=== PATIENT | male | born 1985 | race Caucasian/White ===

== ENCOUNTER → 2018-05-24 15:02 | Outpatient (CLI) | payer OTHER, SELFPAY ==
--- NOTE | 2018-05-24 15:10 | RAD_ITS ---
STUDY: X-RAY CHEST REASON FOR EXAM: Male, 32 years old. 2 day history of cough. TECHNIQUE: PA and lateral views of the chest. COMPARISON: None. FINDINGS: The lungs are clear and expanded. There is no demonstrated pleural abnormality. Normal size heart. Normal mediastinum and darren. Normal visualized pulmonary arteries. Normal visualized aortic arch and descending thoracic aorta. Normal visualized thoracic spine. Normal visualized ribs, clavicles, and shoulders. There is no demonstrated abnormality of the visualized soft tissue structures of the upper abdomen. RAD/Chest PA and Lateral IMPRESSION: Normal x-ray examination of the chest. Electronically Signed: Gianfranco Chow MD at 15:30 EST , Service support ,
== END ==
PROVIDERS: Family Provider Family Medicine; PCP Family Medicine; Referring Provider Family Medicine; Visit Provider Family Medicine
DX: J20.9 Acute bronchitis, unspecified (principal)
CPT/HCPCS: 71046

== ENCOUNTER → 2020-11-28 16:42 | Outpatient (CLI) | payer OTHER, SELFPAY ==
[2020-11-28 17:58] LABS: AST(SGOT) 35 U/L (15-37); Alanine Aminotransfer ALT/SGPT 82 U/L (16-61); Albumin, Serum 4.1 g/dL (3.2-5.0); Alkaline Phosphatase 99 U/L (45-117); Anion Gap 7 (5-15); BUN 11 mg/dL (7-18); BUN/Creat Ratio 10.3 RATIO (10-20); Calcium,Total 8.7 mg/dL (8.5-10.1); Chloride 102 mmol/L (98-107); Cholesterol 173 mg/dL (200); Creatinine, Serum 1.07 mg/dL (0.70-1.30); EST Glomerular Filtration Rate 85 mL/min (>60); Est Glom Filt Rate - Afr Amer 102 mL/min (>60); Glucose 87 mg/dL (74-106); High Density Lipoprotein 38 mg/dL; Potassium 3.6 mmol/L (3.5-5.1); Protein, Total 8.1 g/dL (6.4-8.2); Sodium Level 137 mmol/L (136-145); Triglycerides 229 mg/dL; Very Low Density Lipoprotein 46 mg/dL (5-40)
== END ==
LOC: MFPLAB 16:45
PROVIDERS: Visit Provider Family Medicine
DX: R03.0 Elevated blood-pressure reading, without diagnosis of hypertension (principal)
CPT/HCPCS: 36415; 80053; 80061

== ENCOUNTER 2022-11-13 19:25 | Emergency (ER) | payer SELFPAY ==
[2022-11-13 19:27] VITALS: BP 179/125; PULSE 110; RESP 18; TEMP 36.1; O2SAT 99; BMI 35.9
--- NOTE | 2022-11-13 19:33 | EKG12_ITS ---
Test Reason : SOB Blood Pressure : / mmHG Vent. Rate : 103 BPM Atrial Rate : 103 BPM P-R Int : 178 ms QRS Dur : 112 ms QT Int : 360 ms P-R-T Axes : 039 000 020 degrees QTc Int : 471 ms Sinus tachycardia Otherwise normal ECG Confirmed by BEBE MACIAS, LENI ([id number]), senior technical editor BHARAT AGEE ([id number]) on 11/15/2022 12:35:10 PM Referred By: TYRON Confirmed By:LENI SPENCE MD
--- NOTE | 2022-11-13 19:37 | EDS_ITS ---
HPI History of Present Illness Chief Complaint: Shortness of Breath Informant: patient Onset/Context/Timing Onset: Weeks Context: gradual Timing: Intermittent Quality: Positive for Dyspnea on exertion and Wheezing Current Severity: Mild Maximum Severity: Mild Worsened by: Exertion and Coughing Relieved by: Rest Associated Symptoms cough Chest Pain: Positive for Intermittent and Sharp Narrative Narrative: 36-year-old male noticing a past medical history. States he has had issues breathing for last several weeks. He said he uses a mask at work and has noticed some tears in the mass recently and thinks he may have inhaled some industrial chemicals or coatings. He has had some intermittent wheezing. Some chest discomfort that is not necessarily exertional. Nonproductive cough. No fever. No history of DVT or PE. No leg pain or swelling. No hemoptysis. No recent travel, surgery or immobilization. Today carried in multiple loads of groceries and stated he became winded. He does have a history of hypertension which in the past he was on medications for that is been stopped. PE Risk Factors: Negative for Cancer, OCP + Smoking + > 35, Prior DVT or PE, Recent immobilization, Recent surgery or Recent travel Prior similar symptoms: No Recent Illness/Hospitalization: No [facility] Medical History (Updated 11/13/22 @ 20:[address] Rj Thompson MD) Hypertension Allergy/AdvReac Type Severity Reaction Status Date / Time cefdinir Allergy Intermediate Nausea/Vom/ Verified 11/13/22 19:27 Diarrhea Social History Smoking Status: Never smoker ROS ROS ED ROS Narrative Shortness of breath. Cough. Intermittent wheezing. Review of Systems ROS Unobtainable: Denies due to encephalopathy Constitutional Constitutional ED: Denies chills or fever(s) Eyes Eyes: Denies blurry vision ENT ENT ED: Denies ear pain Cardiovascular Cardiovascular: Reports chest pain; Denies palpitations or racing heartbeat Respiratory/Chest Respiratory/Chest: Reports cough, dyspnea and dyspnea on exertion Gastrointestinal Gastrointestinal: Denies abdominal pain, constipation, diarrhea, melena, nausea or vomiting Genitourinary Genitourinary ED: Denies dysuria or hematuria Musculoskeletal Musculoskeletal: Denies arthralgias Integumentary Denies abscess Neurologic Neurologic: Denies headache(s) Psychiatric Psychiatric: Denies anxiety Endocrine Endocrinology: Denies cold intolerance Hematologic/Lymphatic Hematologic/Lymphatic: Denies easy bleeding, easy bruising or lymphadenopathy Allergic/Immunologic Allergic/Immunologic ED: Denies mouth swelling or tongue swelling EXAM Physical Exam Narrative Exam Narrative: Appearing 36-year-old male. Vital signs are stable except his blood pressure elevated 179/125 and he is tachycardic at 110. Pulse ox 99% on room air no hypoxia. He is in no distress. HEENT exam unremarkable. Moist mucous members. Neck nontender. No JVD. No lymphadenopathy. Lungs clear to auscultation bilaterally. Heart tachycardic rate of 105 no murmur. Chest wall nontender. Abdomen soft nontender. Moving all 4 extremities. 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 Dorsi plantarflexion intact. Calves are nontender without edema or cords. Equal symmetrical radial pulses. Is awake and alert. No focal motor deficits. Clinically looks well. Const Vital Signs: 11/13/22 19:27 11/13/22 19:44 11/13/22 19:47 Temperature 97.0 F L Temperature Source Temporal Pulse Rate 110 H 101 H Respiratory Rate 18 16 Respiratory Effort Respiratory Depth Respiratory Pattern Blood Pressure 179/125 H 152/95 H Blood Pressure Mean 143 114 Pulse Ox 99 98 Oxygen Delivery Method Room Air Room Air Room Air 11/13/22 19:47 Temperature Temperature Source Pulse Rate Respiratory Rate Respiratory Effort Normal Respiratory Depth Normal Respiratory Pattern Normal Blood Pressure Blood Pressure Mean Pulse Ox Oxygen Delivery Method Positive well nourished and well developed; Negative for cachectic, contractures or unkempt General Appearance ED: well developed and NAD; Negative for unkempt, cachectic, contractures or pallor Nutritional Appearance: Negative for cachectic HEENT Reports moist mucous membranes atraumatic; Negative for trauma or tenderness Eyes PERRL and EOMs intact bilaterally General Eye ED: Negative for pale conjunctiva or scleral icterus Neck no lymphadenopathy, supple, no meningeal signs and no JVD General: Negative for tenderness Lymph Lymphatic: Negative for other Resp normal respiratory effort and clear to auscultation bilaterally Effort and Inspection: Negative for pain with movement Auscultation: Negative for rales, rhonchi or wheezes Cardio regular rhythm, S1 normal heart sound, S2 normal heart sound and no murmurs; Negative for regular rate Rate: tachycardic Rhythm: Negative for abnormal rhythm GI non-tender, non-distended and no masses Inspection: Negative for other Auscultation: normoactive bowel sounds Palpation: soft; Negative for tender or guarding Back/Spine no CVA tenderness and normal to inspection General Back: Negative for CVA tenderness Extremity normal to inspection General Extremety ED: Negative for edema or tenderness General Extremity: Negative for edema Neuro oriented x3, CN's II-XII intact bilaterally and no sensory deficits noted Sensorium / Orientation: alert, oriented to person, oriented to place and oriented to time; Negative for orientation impaired, confused, lethargic or stuporous Motor Exam: strength 5/5 throughout Psych mental status grossly normal Appearance: Negative for unkempt Attitude: No agitated Mood & Affect: Negative for depressed Thought Process: normal thought process Skin no wounds and skin turgor normal General Skin Exam: Negative for jaundice or pallor Lesions: no lesions Rashes: no rashes Trauma: Negative for abrasion or laceration MDM MDM MDM Narrative Medical decision making narrative: 36-year-old male benign exam other than his elevated blood pressure with recent shortness of breath. He will undergo a cardiac work-up. He has no history or risk factors for DVT or PE or physical findings. I do not think this is cardiac in etiology. It may or may not be related to his blood pressure that previously was treated but he is currently not taking any medications for he is not wheezing and there is no signs of bronchospasm or pneumonia. Repeat exam at 8:05 PM patient doing well. Lungs are clear. Heart rates 95. No wheezing. No distress. We discussed his elevated blood pressure. It has come down on its own he is 155/99. He took himself off his blood pressure medications in the past due to side effects. He currently does not have a primary care physician. This all could be related to hypertension. I explained that both he and his . He also most likely needs an outpatient stress test. Even though recently has not really been having cardiac sounding chest pain. They are comfortable with him being discharged home there is really no reason to medically admit him. He will need to call and get set up with a local primary care physician to readdress his blood pressure if it needs to be treated. And also if he needs an outpatient stress test. They are comfortable with that plan. History & Record Review Discussion w/independent historian: Patient and Family Lab Data Attestation: I reviewed the patient's lab results. Lab results narrative: CBC unremarkable. White count of 10. H&H of 15 and 46. Platelets 327. Electrolytes show potassium of 3.2. Gap of 9. Normal BUN and creatinine of 13 and 1. Glucose 101. Troponin is normal at 22. Labs: Laboratory Results - last 24 hr 11/13/22 19:35 WBC 10.3 RBC 5.85 Hgb 15.4 Hct 46.9 MCV 80.2 MCH 26.3 L MCHC 32.8 RDW Std Deviation 40.8 RDW Coeff of Rosanna 14.1 Plt Count 327 MPV 9.2 Immature Gran % (Auto) 0.300 Neut % (Auto) 70.2 H Lymph % (Auto) 21.0 [place] % (Auto) 7.3 Eos % (Auto) 0.8 Baso % (Auto) 0.4 Absolute Neuts (auto) 7.2 Absolute Lymphs (auto) 2.16 Nucleated RBC % 0 Sodium 138 Potassium 3.2 L Chloride 105 Carbon Dioxide 24.0 Anion Gap 9 BUN 13 Creatinine 1.06 Estim Creat Clear Calc 95.00 Est GFR (MDRD) Af Amer 102 Est GFR (MDRD) Non-Af 85 BUN/Creatinine Ratio 12.3 Glucose 101 Calcium 8.8 Troponin I High Sens 22 Radiography Chest X-Ray - ED: 1 View, Read by ED Physician, Bony Structures, No Acute Disease, Chronic Changes and No Infiltrates Diagnostic Testing: Chest x-ray, portable, single view shows no acute abnormality. No pneumonia. No infiltrates. No effusions. No CHF. No pneumothorax. Interpreted by myself. Rhythm Strip Rhythm Strip: Sinus Tach Rate: 103 Ectopy: None EKG Initial EKG: Attestation: I personally reviewed and interpreted this EKG as follows: Interpretation: No Acute Injury Pattern and Sinus Tachycardia Comments: Sinus tachycardia rate of 103 no acute signs of IN or ischemia. Discharge Plan Triage Chief Complaint: Shortness of Breath ED Provider: Rj Thompson Dx/Rx/DC Orders Clinical Impression: Acute dyspnea, Hypertension Instructions: ED Dyspnea, ED Hypertension, To Be Confirmed Primary Care Provider: Care Physician,No Primary Referrals: Luis Lujan MD [[facility] [employer] [facility]] - As soon as possible Care Physician,No Primary [Primary Care Provider] - Activity Restrictions/Additional Instructions: Call and follow-up with a local primary care physician's office to be evaluated 1 for elevated blood pressure and if you need to go back on blood pressure medications. To also you may need an outpatient stress test due to the exertional shortness of breath. Your EKG, chest x-ray and labs today were unremarkable. This does need further evaluation. Be very careful with the blood pressure if it remains elevated you will need to go back on medication. Get a blood pressure machine for home and log it in the morning in the evening and show those when you follow-up with your primary care physician. Disposition Disposition: Home, Self Care
[2022-11-13 19:47] VITALS: BP 152/95; PULSE 101; RESP 16; O2SAT 98
--- NOTE | 2022-11-13 19:55 | RAD_ITS ---
INDICATION: chest pain EXAMINATION/TECHNIQUE: X-RAY - XR Chest 1 View COMPARISON: Prior comparison exam dated May 24, 2018. FINDINGS: LINES/DEVICES: None. LUNGS: Symmetric normal lung volumes. No airspace opacity or abnormal interstitial pattern. No nodule or mass. No pleural effusion or pneumothorax. MEDIASTINUM AND CARDIOVASCULAR STRUCTURES: Normal size and contour of the cardiomediastinal silhouette. No evidence of pulmonary vascular congestion. BONES AND SOFT TISSUES: No fracture or focal osseous lesion. RAD/Chest 1 View (Portable) IMPRESSION: 1. No radiographic evidence of acute cardiopulmonary disease. Electronically Signed: Cam Luciano DO at 20:06 EDT ,
[2022-11-13 19:57] LABS: Absolute Lymphocyte Count 2.16 X10^3/uL (0.83-4.51); Absolute Neutrophil Count 7.2 X10^3/uL (2.0-7.7); Basophil# 0.04 X10^3/uL; Basophil% 0.4 % (0-1); Eosinophil# 0.08 X10^3/uL; Eosinophils% 0.8 % (0-5); Hematocrit 46.9 % (40-54); Hemoglobin 15.4 g/dL (13.0-16.5); Lymphocyte # 2.16 X10^3/ul (0.83-4.51); Mean Corp Hgb Conc 32.8 g/dL (32-36); Mean Corpuscular Hgb 26.3 pg (27.0-32.0); Mean Corpuscular Volume 80.2 fL (80-94); Mean Platelet Vol. 9.2 fl (6.2-12.0); Monocyte# 0.75 X10^3/uL; Monocyte% 7.3 % (0-10); NRBC Flagged by Analyzer 0 % (0-5); Neutrophil # 7.23 X10^3/uL (2.7-7.7); Neutrophil % 70.2 % (47-70); Platelet Count 327 K/mm3 (150-450); RBC Distribution Width CV 14.1 % (11.6-14.6); RBC Distribution Width SD 40.8 fl (35.1-43.9); Red Blood Count 5.85 M/mm3 (4.6-6.2); White Blood Count 10.3 K/mm3 (4.4-11.0)
[2022-11-13 20:03] LABS: Anion Gap 9 (5-15); BUN 13 mg/dL (7-18); BUN/Creat Ratio 12.3 RATIO (10-20); Calcium,Total 8.8 mg/dL (8.5-10.1); Chloride 105 mmol/L (98-107); Creatinine, Serum 1.06 mg/dL (0.70-1.30); EST Glomerular Filtration Rate 85 mL/min (>60); Est Glom Filt Rate - Afr Amer 102 mL/min (>60); Glucose 101 mg/dL (74-106); Potassium 3.2 mmol/L (3.5-5.1); Sodium Level 138 mmol/L (136-145); Troponin-I HS 22 pg/mL (3.0-78.0)
[2022-11-13 20:33] VITALS: BP 147/86
== END 2022-11-13 20:35 | disposition home or self-care (01) ==
PROVIDERS: Emergency Provider Emergency Medicine; Visit Provider Emergency Medicine
DX: R06.02 Shortness of breath (principal); I10 Essential (primary) hypertension; R07.9 Chest pain, unspecified
CPT/HCPCS: 71045; 80048; 84484; 85025; 93005; 99284; A4216